=== PATIENT | female | born 1980 | race Caucasian/White ===

== ENCOUNTER → 2019-09-03 | Outpatient (CLI) | payer BC ==
--- NOTE | 2019-09-04 10:21 | MM ---
Reason for exam: clinical finding. Last mammogram was performed 5 years ago. History: Family history of breast cancer in grandmother at age 80. Benign US breast needle core LT of the left breast, September 16, 2014. Saline implants in both breasts, May 2013. Indicated problem(s): lump or thickening in the left breast. Physical Findings: Nurse Summary: 1cm nodule in the left breast at 5 o'clock (nurse mj). MG 3D Diag Mammo Imp W/Cad PHYLLIS Bilateral CC, MLO, and ID view(s) were taken. ML, CC with magnification, and LM with magnification view(s) were taken of the right breast. XCCL view(s) were taken of the left breast. Prior study comparison: August 30, 2014, bilateral MG diag mamm implants PHYLLIS w CAD. The breast tissue is heterogeneously dense. This may lower the sensitivity of mammography. Finding #1: There is a typically benign high density, circumscribed round mass located 6 cm from the nipple in the lower outer quadrant, middle position. Finding #2: There are grouped/clustered calcifications in the 9 o'clock lower outer quadrant of the right breast 6cm from the nipple. Previous mammotome biopsy in the right breast upper posterior position. Bilateral breast prothesis. New finding since August 30, 2014. These results were verbally communicated with the patient and result sheet given to the patient on 09/03/19. ASSESSMENT: Incomplete: need additional imaging evaluation, BI-RAD 0 RECOMMENDATION: Ultrasound of the left breast.
--- NOTE | 2019-09-04 10:26 | USB ---
Reason for exam: additional evaluation requested from abnormal screening. History: Family history of breast cancer in grandmother at age 80. Benign US breast needle core LT of the left breast, September 16, 2014. Saline implants in both breasts, May 2013. US Breast Limited LT Left limited breast ultrasound including focal area of concern, retroareolar and axilla demonstrates 1.8 x 1.2 x 1.7cm oval, hypoechoic lesion at 5 o'clock. These results were verbally communicated with the patient and result sheet given to the patient on 09/03/19. ASSESSMENT: Suspicious, BI-RAD 4 RECOMMENDATION: Ultrasound core biopsy of the left breast. Stereotactic core biopsy. Left breast ultrasound core biopsy, right stereotactic core biopsy. Called Dr. Peña's office with mammographic findings. Biopsy scheduled for 10/02/19 at 8:00. PRELIMINARY REPORT CALLED AND FAXED TO DR. PEÑA ON 09/04/19.
== END | disposition home or self-care (01) ==
LOC: RADMAMWWP 13:34
PROVIDERS: ATTEND Internal Medicine
DX: R92.8 Other abnormal and inconclusive findings on diagnostic imaging of breast (principal); N63.10 Unspecified lump in the right breast, unspecified quadrant; N63.20 Unspecified lump in the left breast, unspecified quadrant
CPT/HCPCS: 77062; 77066

== ENCOUNTER → 2019-10-02 | Day surgery (SDC) | payer BC ==
[2019-10-02 07:29] VITALS: RESP 16
[2019-10-02 10:32] VITALS: BP 110/67; PULSE 56; TEMP 98.2
--- NOTE | 2019-10-02 12:07 | USB ---
EXAMINATION TYPE: US biopsy breast VAD LT, MG post biopsy diagnostic mammo LT wo CAD DATE OF EXAM: 10/02/2019 CLINICAL HISTORY: 39-year-old female palpable mass left breast referred for ultrasound-guided biopsy. R92.8 ABN MAMMO. TECHNIQUE: Ultrasound guided core biopsy of the left breast. COMPARISON: 09/03/2019 FINDINGS: The procedure of ultrasound guided core biopsy was explained to the patient. Benefits, alt ernatives, and risks were discussed. An informed consent was then obtained. The patient was placed in supine positioning for imaging and for the procedure. The overlying skin w as prepped and draped in usual sterile fashion. Lidocaine was used as anesthetic into the skin follo wed by lidocaine/epinephrine into the subcutaneous tissue up to area of concern in the 5:[address] Under ultrasound guidance, a 13-gauge vacuum-assisted mammotome Elite biopsy gun device was used to o btain 4 core samples. Following this, a coil clip was left in lesion. The patient tolerated the procedure well without any immediate complication. The patient was kept in the radiology department for short stay after the procedure and then discharged home in stable condi tion. Post procedure mammogram shows retropectoral saline implant and coil clip satisfactorily at the 5:00 position. Old ribbon clip at the 2:00 position peripherally. IMPRESSION: Successful, uncomplicated ultrasound guided core biopsy of area of palpable mass in the 5:00 left magnus ast, possible fibroadenoma. Full pathology results to follow. Pathology results also pending for stereotactic right breast biopsy for microcalcifications performed on the same day.
--- NOTE | 2019-10-02 13:04 | MM ---
EXAMINATION TYPE: MG stereo VAD BX RT DATE OF EXAM: 10/02/2019 COMPARISON: 09/03/2019 CLINICAL HISTORY: 39-year-old female R92.8, abnormal mammogram. Referred for stereotactic core needle biopsy of right breast microcalcifications. Ultrasound-guided left breast biopsy same day. TECHNIQUE: Stereotactic guided core biopsy of the right breast. FINDINGS: The procedure of stereotactic guided core biopsy was explained to the patient. Benefits, a lternatives, and risks were discussed. An informed consent was then obtained. Shortness pathway was a lateral approach. However, given far posterior positioning, CC from below ciro osman activity utilized. I performed the localization followed by the remainder of the procedure. A v acDealised assisted biopsy gun was used to obtain 6 core samples. The patient tolerated the procedure well without any immediate complication. The patient was kept in the radiology department for short stay after the procedure and then discharged home in stable condi tion. Targeted calcifications are identified in specimen mammogram. Post biopsy mammogram shows the clip to have migrated 1 cm inferiorly relative to the calcifications on the preprocedure images. IMPRESSION: SUCCESSFUL, UNCOMPLICATED STEREOTACTIC GUIDED CORE BIOPSY OF LATERAL RIGHT BREAST MICROCALCIFICATIONS . NOTE POSTERIOR POSITIONING NECESSITATING CT FROM BELOW APPROACH. 1 CM OF INFERIOR CLIP MIGRATION. B REAST, FULL PATHOLOGY RESULTS TO FOLLOW. Pathology results also pending for the ultrasound-guided left breast biopsy of the palpable mass perf ormed on the same day.
== END ==
LOC: RADMAMWWP 06:58
PROVIDERS: ATTEND Internal Medicine
DX: D24.2 Benign neoplasm of left breast (principal); N60.11 Diffuse cystic mastopathy of right breast; R92.0 Mammographic microcalcification found on diagnostic imaging of breast
CPT/HCPCS: 88305; 77065; 19081; 19083; A4648 ×2; J2001

== ENCOUNTER → 2022-05-30 | Outpatient (CLI) | payer BC ==
--- NOTE | 2022-05-30 14:25 | XR ---
EXAMINATION TYPE: XR chest 2V DATE OF EXAM: 05/30/2022 COMPARISON: NONE TECHNIQUE: PA and lateral views submitted. HISTORY: Pain FINDINGS: The lungs are clear and there is no pneumothorax, pleural effusion, or focal pneumonia. Heart size normal and no overt failure. Osseous structures demonstrate hypertrophic and degenerative changes of the spine. IMPRESSION: 1. No acute process.
--- NOTE | 2022-05-30 14:37 | XR ---
EXAMINATION TYPE: XR ribs LT DATE OF EXAM: 05/30/2022 COMPARISON: NONE HISTORY: Pain TECHNIQUE: 4 views submitted FINDINGS: The rib cage is intact. No acute displaced rib fracture. IMPRESSION: No acute displaced rib fracture
== END | disposition home or self-care (01) ==
LOC: RADXRYALE 12:55
PROVIDERS: ATTEND Internal Medicine
DX: R07.82 Intercostal pain (principal)
CPT/HCPCS: 71046

== ENCOUNTER → 2022-10-11 | Outpatient (CLI) | payer BC ==
--- NOTE | 2022-10-17 12:18 | MR ---
EXAMINATION TYPE: MR hip RT wo con DATE OF EXAM: 10/11/2022 COMPARISON: Correlation radiographs 10/03/2022 HISTORY: 42-year-old female Rt hip pain, limited movement TECHNIQUE: Multiplanar, multisequence images of the right hip were obtained without IV contrast. FINDINGS: Very subtle asphericity of the femoral heads with slight osseous excrescence along the anterior femor al head neck junctions on both sides, axial image 19. Accompanying intraosseous fibrocystic change on the left. On the right, some linear signal along the labral chondral junction along the posterior s uperior quadrant from 12:00 to 3:00 probably sublabral recess. Otherwise, no large labral tear or par a labral cyst is clearly identified. No evidence for hip fracture or AVN. No significant hip joint effusion. The SI joints and sacrum appear intact. The rectus femoris and hamstring origins are intact. Gluteal insertions are intact. There is intense focal edema at the right lesser trochanter and a corresponding partial tear of the i liopsoas insertion here. The left iliopsoas psoas insertion is intact. Patchy red marrow in keeping with patient's relatively young age. Normal course, caliber, and signal intensity of the sciatic nerves. Trace pelvic free fluid likely physiologic. Uterus anteverted. Follicular changes in the ovaries. IMPRESSION: 1. Intense focal edema at the right lesser trochanter with a a corresponding partial tear at the righ t iliopsoas tendon insertion. 2. Very subtle bony findings at the hips may predispose the patient to femoral acetabular impingement syndrome. Correlate with physical exam testing. Suspect a sublabral recess along the posterior super ior quadrant of the right acetabular labrum rather than a labral tear. Clinical correlate.
== END | disposition home or self-care (01) ==
LOC: RADMRIMAIN 12:47
PROVIDERS: ATTEND Orthopaedic Surgery
DX: M66.851 Spontaneous rupture of other tendons, right thigh (principal); R60.0 Localized edema